=== PATIENT | female | born 1950 | race Hispanic/Latino ===

== ENCOUNTER 2021-05-20 11:54 | Emergency (ER) | payer OTHER ==
[2021-05-20 13:46] LABS: Absolute Lymphocytes (CBC) 0.7 K/uL (0.7-4.9); Basophils % 0.4 % (0-1.3); Hematocrit 41.7 % (36.0-45.0); MPV 9.4 fL (7.6-11.3); RBC Red Blood Cell Count 4.82 M/uL (3.86-4.86)
[2021-05-20 13:47] LABS: Protime INR 1.08
[2021-05-20 14:01] LABS: Albumin 3.1 g/dL (3.4-5.0); Bilirubin Direct 0.2 mg/dL (0-0.2); Bilirubin Total 0.4 mg/dL (0.2-1.0); Potassium 4.2 mmol/L (3.5-5.1); Protein, Total 7.4 g/dL (6.4-8.2); Troponin (Emerg Dept Use Only) 0.02 ng/mL (0.0-0.045)
[2021-05-20] MEDS ORDERED: NA CHLORIDE 0.9% 1,000 ML ONE (14:17)
[2021-05-20] MEDS ORDERED: FAMOTIDINE 20 MG/2 ML VIAL IV ONE (14:17)
--- NOTE | 2021-05-20 14:32 | RAD REPORT ---
EXAM DESCRIPTION: RAD - Chest Single View - 05/20/2021 1:55 pm CLINICAL HISTORY: COUGH COMPARISON: Chest Pa And Lat (2 Views) dated 12/19/2016; Chest Single View dated 09/02/2016; Chest Sin gle View dated 04/02/2016; ABDOMEN 1 VIEW KUB dated 05/06/2015 FINDINGS: Increased opacification at the lateral aspect of the left lung base. Nonspecific linear op acities in the right mid lung. The heart size is within normal limits.No acute osseous abnormality. N o significant pleural effusions or pneumothorax. IMPRESSION: Opacities laterally in the left lung base and right mid lung could reflect pneumonia in the appropriate clinical setting.
[2021-05-20 15:16] LABS: Ferritin 257.1 ng/mL (8-388)
[2021-05-20] MEDS ORDERED: ZINC SULFATE 220 MG CAP ONE (15:28)
[2021-05-20] MEDS ORDERED: NA CHLORIDE 0.9% 500 ML ONE (15:29)
[2021-05-20] MEDS ORDERED: ASPIRIN 81 MG CHEWABLE TABLET ONE (15:29)
[2021-05-20] MEDS ORDERED: THIAMINE HCL 100 MG TABLET ONE (15:29)
[2021-05-20] MEDS ORDERED: ASCORBIC ACID 500 MG TABLET ONE (15:29)
[2021-05-20] MEDS ORDERED: VITAMIN D 1000 UNIT TAB ONE (15:29)
[2021-05-20] MEDS ORDERED: CEFTRIAXONE/SWI 1gm 1 GM/10 ML SYR ONE (15:30)
--- NOTE | 2021-05-20 15:52 | EDPHYS ---
Physician Documentation [facility] Name: Odell Felix Age: 70 yrs Sex: Female : 1950 Arrival Date: 05/20/2021 Time: 11:58 Bed 14 Private MD: Arben Evans T ED Physician Dominguez Grant HPI: 05/20 12:39 This 70 yrs old Female presents to ER via Wheelchair with complaints of pilar Weakness. 12:39 The patient presents to the emergency department with weakness of the. pilar Historical: - Allergies: 12:17 Lortab; kg 12:17 Ultram; kg - Home Meds: 12:17 alprazolam 0.5 mg Oral tab 1 tab daily [Active]; amlodipine 5 mg tab 1 tab once daily kg [Active]; duloxetine 60 mg Oral cpDR 1 cap once daily [Active]; Iron CR 65mg Oral 1 tab daily [Active]; lisinopril 20 mg Oral tab 1 tab once daily [Active]; metformin 500 mg Oral tr24 1 tab twice daily [Active]; metoprolol tartrate 50 mg Oral tab 1 tab 2 times per day [Active]; pravastatin 10 mg Oral tab 1 tab once daily [Active]; [facility] Aspirin 81 mg Oral chew 1 tab once daily [Active]; - PMHx: 12:17 Anxiety; CVA; Diabetes - IDDM; Hypertension; Myocardial infarction; Depression; kg - PSHx: 12:17 Ligation of fallopian tube; kg - Immunization history:: Adult Immunizations not up to date, Client reports having NOT received the Covid vaccine. - Social history:: Smoking status: Patient denies any tobacco usage or history of. ROS: 12:39 Constitutional: Negative for fever, chills, and weight loss, Eyes: Negative for injury, pilar pain, redness, and discharge, ENT: Negative for injury, pain, and discharge, Neck: Negative for injury, pain, and swelling, Cardiovascular: Negative for chest pain, palpitations, and edema, Respiratory: Negative for shortness of breath, cough, wheezing, and pleuritic chest pain, Abdomen/GI: Negative for abdominal pain, nausea, vomiting, diarrhea, and constipation, Back: Negative for injury and pain, : Negative for injury, bleeding, discharge, and swelling, MS/Extremity: Negative for injury and deformity, Skin: Negative for injury, rash, and discoloration, Psych: Negative for depression, anxiety, suicide ideation, homicidal ideation, and hallucinations, Allergy/Immunology: Negative for hives, rash, and allergies, Endocrine: Negative for neck swelling, polydipsia, polyuria, polyphagia, and marked weight changes, Hematologic/Lymphatic: Negative for swollen nodes, abnormal bleeding, and unusual bruising. 12:39 Neuro: Positive for weakness. Exam: 12:39 Constitutional: This is a well developed, well nourished patient who is awake, alert, pilar and in no acute distress. Head/Face: Normocephalic, atraumatic. Eyes: Pupils equal round and reactive to light, extra-ocular motions intact. Lids and lashes normal. Conjunctiva and sclera are non-icteric and not injected. Cornea within normal limits. Periorbital areas with no swelling, redness, or edema. ENT: Nares patent. No nasal discharge, no septal abnormalities noted. Tympanic membranes are normal and external auditory canals are clear. Oropharynx with no redness, swelling, or masses, exudates, or evidence of obstruction, uvula midline. Mucous membranes moist. Neck: Trachea midline, no thyromegaly or masses palpated, and no cervical lymphadenopathy. Supple, full range of motion without nuchal rigidity, or vertebral point tenderness. No Meningismus. Chest/axilla: Normal chest wall appearance and motion. Nontender with no deformity. No lesions are appreciated. Cardiovascular: Regular rate and rhythm with a normal S1 and S2. No gallops, murmurs, or rubs. Normal PMI, no JVD. No pulse deficits. Respiratory: Lungs have equal breath sounds bilaterally, clear to auscultation and percussion. No rales, rhonchi or wheezes noted. No increased work of breathing, no retractions or nasal flaring. Abdomen/GI: Soft, non-tender, with normal bowel sounds. No distension or tympany. No guarding or rebound. No evidence of tenderness throughout. Back: No spinal tenderness. No costovertebral tenderness. Full range of motion. Female : Normal external genitalia. Skin: Warm, dry with normal turgor. Normal color with no rashes, no lesions, and no evidence of cellulitis. MS/ Extremity: Pulses equal, no cyanosis. Neurovascular intact. Full, normal range of motion. Neuro: Awake and alert, GCS 15, oriented to person, place, time, and situation. Cranial nerves II-XII grossly intact. Motor strength 5/5 in all extremities. Sensory grossly intact. Cerebellar exam normal. Normal gait. Psych: Awake, alert, with orientation to person, place and time. Behavior, mood, and affect are within normal limits. 14:52 ECG was reviewed by the Attending Physician. [facility] Vital Signs: 12:15 BP 112 / 62; Pulse 99; Resp 17; Temp 98.4; Pulse Ox 96% on R/A; Weight 54.43 kg (R); kg Height 5 ft. 1 in. (154.94 cm) (R); Pain 0/10; 13:00 BP 131 / 75; Pulse 86; Resp 16; Pulse Ox 99% ; bp 14:00 BP 138 / 72; Pulse 88; Resp 16; Pulse Ox 99% ; bp 15:00 BP 152 / 77; Pulse 85; Resp 16; Pulse Ox 99% ; bp 16:36 BP 185 / 81; Pulse 70; Resp 16; Pulse Ox 100% ; bp 17:30 BP 171 / 87; Pulse 74; Resp 16; Pulse Ox 100% ; bp 18:30 BP 187 / 77; Pulse 73; Resp 17; Pulse Ox 100% ; bp 12:15 Body Mass Index 22.67 (54.43 kg, 154.94 cm) kg MDM: 12:24 Patient medically screened. [facility] 12:42 Differential Diagnosis sepsis. Data reviewed: vital signs, nurses notes, lab test [facility] result(s), EKG, radiologic studies, plain films. Data interpreted: property assessment monitor: rate is 99 beats/min, rhythm is regular, Pulse oximetry: on room air is 96 %. Test interpretation: by ED physician or midlevel provider: ECG, plain radiologic studies. Counseling: I had a detailed discussion with the patient and/or guardian regarding: the historical points, exam findings, and any diagnostic results supporting the discharge/admit diagnosis, lab results, radiology results. 05/20 12:20 Order name: COVID-19 : Document "Date of Symptom Onset" if Symptomatic. kg 05/20 12:20 Order name: Flu kg 05/20 12:20 Order name: Influenza Screen (A ; Complete Time: 13:32 EDMA 05/20 12:38 Order name: Basic Metabolic Panel [facility] 05/20 12:38 Order name: CBC with Diff [facility] 05/20 12:38 Order name: LFT's [facility] 05/20 12:38 Order name: Magnesium [facility] 05/20 12:38 Order name: NT PRO-BNP [facility] 05/20 12:38 Order name: PT-INR [facility] 05/20 12:38 Order name: Troponin (emerg Dept Use Only) [facility] 05/20 12:38 Order name: Urine Culture [facility] 05/20 12:38 Order name: Lipase; Complete Time: 14:19 [facility] 05/20 12:39 Order name: Basic Metabolic Panel; Complete Time: 14:19 EDMS 05/20 12:38 Order name: XRAY Chest (1 view); Complete Time: 14:40 [facility] 05/20 12:39 Order name: CBC with Automated Diff; Complete Time: 14:19 EDMA 05/20 12:39 Order name: Liver (Hepatic) Function; Complete Time: 14:19 EDMA 05/20 12:39 Order name: Magnesium; Complete Time: 14:19 EDMA 05/20 12:39 Order name: NT PRO-BNP; Complete Time: 14:19 EDMA 05/20 12:39 Order name: Protime (+INR); Complete Time: 14:19 EDMA 05/20 12:39 Order name: Troponin (Emerg Dept Use Only); Complete Time: 14:19 EDMA 05/20 14:18 Order name: SARS-COV-2 RT PCR; Complete Time: 14:19 EDMA 05/20 14:23 Order name: CRP [facility] 05/20 14:23 Order name: Ferritin [facility] 05/20 14:23 Order name: D-Dimer [facility] 05/20 14:24 Order name: C-Reactive Protein; Complete Time: 15:46 EDMS 05/20 14:24 Order name: Ferritin; Complete Time: 15:46 EDMS 05/20 14:24 Order name: D-Dimer; Complete Time: 15:46 EDMA 05/20 14:44 Order name: Blood Culture Adult (2) [facility] 05/20 16:34 Order name: Urine Dipstick-Ancillary [facility] 05/20 12:38 Order name: EKG; Complete Time: 12:39 [facility] 05/20 12:38 Order name: Cardiac monitoring; Complete Time: 12:50 [facility] 05/20 12:38 Order name: EKG - Nurse/Tech; Complete Time: 12:50 [facility] 05/20 12:38 Order name: IV Saline Lock; Complete Time: 15:53 [facility] 05/20 12:38 Order name: Labs collected and sent; Complete Time: 15:53 [facility] 05/20 12:38 Order name: O2 Per Protocol; Complete Time: 12:50 [facility] 05/20 12:38 Order name: O2 Sat Monitoring; Complete Time: 12:50 [facility] 05/20 12:38 Order name: Urine Dipstick-Ancillary (obtain specimen); Complete Time: 16:39 [facility] 05/20 14:51 Order name: [facility]. Order: vit d 4000 iu po x1; Complete Time: 15:12 [facility] 05/20 15:47 Order name: [facility]. Order: urine , cath; Complete Time: 16:38 [facility] EC:52 Rate is 88 beats/min. Rhythm is regular. QRS Gilbert is Normal. IA interval is shortened pilar at 110 msec. QRS interval is normal. QT interval is normal. No Q waves. T waves are Normal. No ST changes noted. Clinical impression: NSR w/ Non-specific ST/T Changes and No evidence of ischemia. Interpreted by me. Reviewed by me. Administered Medications: 12:50 Drug: NS 0.9% 500 ml Route: IV; Rate: bolus; Site: right forearm; bp 17:20 Follow up: IV Status: Completed infusion; IV Intake: 500ml bp 12:50 Drug: NS 0.9% 1000 ml Route: IV; Rate: 125 ml/hr; Site: right forearm; bp 17:20 Follow up: IV Status: Completed infusion; IV Intake: 1000ml bp 12:50 Drug: Pepcid (famotidine) 20 mg Route: IVP; Site: right forearm; bp 15:12 Follow up: Response: No adverse reaction bp 15:00 Drug: REGEN-COV Dose Pack 120 mg/mL-120 mg/mL (EUA) 120 per protocol Route: IV; Rate: bp per protocol; Site: right forearm; 17:20 Follow up: IV Status: Completed infusion; IV Intake: 250ml bp 15:15 Drug: Ascorbic Acid 1 tablet Route: PO; bp 17:19 Follow up: Response: No adverse reaction bp 15:30 Drug: Rocephin (cefTRIAXone) 1 grams Route: IV; Rate: per protocol; Site: right forearm;bp 17:18 Follow up: IV Status: Completed infusion; IV Intake: 50ml bp 15:30 Drug: Aspirin Chewable Tablet 324 mg Route: PO; bp 17:19 Follow up: Response: No adverse reaction bp 15:30 Drug: NS 0.9% 500 ml Route: IV; Rate: bolus; Site: right forearm; bp 18:24 Follow up: IV Status: Completed infusion; IV Intake: 500ml bp 15:36 Drug: Zinc Sulfate 220 mg Route: PO; bp 17:19 Follow up: Response: No adverse reaction bp 15:45 Drug: Ivermectin 12 mg Route: PO; bp 17:19 Follow up: Response: No adverse reaction bp 16:00 Drug: Zithromax (azithromycin) 500 mg Route: PO; bp 17:19 Follow up: Response: No adverse reaction bp 16:45 Drug: Eliquis (apixaban) 2.5 mg Route: PO; bp 18:25 Follow up: Response: No adverse reaction bp 17:30 Drug: Cipro (ciprofloxacin) 250 mg Route: PO; bp 18:25 Follow up: Response: No adverse reaction bp Disposition Summary: 05/20/21 15:52 Discharge Ordered Location: Home pilar Problem: new pilar Symptoms: have improved pilar Condition: Stable pilar Diagnosis - Coronavirus infection, unspecified - covid 19 pilar - Unspecified kidney failure - chronic pilar - Other malaise and fatigue pilar - Type 1 diabetes mellitus with hyperglycemia pilar - UTI/ Urinary tract infection, site not specified pilar Followup: pilar - With: Arben Evans MD - When: 2 - 3 days - Reason: Recheck today's complaints, Continuance of care, Re-evaluation by your physician Followup: pilar - With: Gerry Carter MD - When: 2 - 3 days - Reason: Recheck today's complaints, Re-evaluation by your physician Discharge Instructions: - Discharge Summary Sheet pilar - Type 1 Diabetes Mellitus, Diagnosis, Adult pilar - Hyperglycemia pilar - Upper Respiratory Infection, Adult, Qzfy-[id number] pilar - Urinary Tract Infection, Adult pilar - Urinary Tract Infection, Adult, Lova-fj-Mkpe pilar - Viral Respiratory Infection, Kder-Vs-Rtnp pilar - Chronic Kidney Disease, Adult, Gxdm-za-Ntnk pilar - COVID-19 pilar Forms: - Medication Reconciliation Form pilar - Thank You Letter pilar - Antibiotic Education pilar - Prescription Opioid Use pilar Prescriptions: - Eliquis 2.5 mg Oral tablet - take 1 tablet by ORAL route 2 times per day; 30 tablet; Refills: 0, Product pilar Selection Permitted - NAC - take 600 milligram by ORAL route once daily; 15 milligram; Refills: 0, Product pilar Selection Permitted - Vitamin C - take 500 milligram by ORAL route 3 times per day; 60 milligram; Refills: 0, [facility] Product Selection Permitted - albuterol sulfate 90 mcg/actuation Inhalation HFA aerosol inhaler - inhale 2 puff by INHALATION route 3-4 times daily; 1 Pump; Refills: 0, Product pilar Selection Permitted - vit D3-vit V-knonqdjso-nwev - take 1 tablet by ORAL route 2 times per day; 30 tablet; Refills: 0, Product pilar Selection Permitted - Pepcid 20 mg Oral Tablet - take 1 tablet by ORAL route every 12 hours for 15 days; 30 tablet; Refills: 0, [facility] Product Selection Permitted - Zithromax Z-Nilesh 250 mg Oral Tablet - take 1 tablet by ORAL route as directed for 5 days Day 1 - take two (2) tablets pilar one time. Day 2, 3, 4 , 5 take one (1) tablet once daily.; 6 tablet; Refills: 0, Product Selection Permitted - ivermectin 3 mg Oral tablet - take 4 tablet by ORAL route once daily; 16 tablet; Refills: 0, Product pilar Selection Permitted - Cipro 250 mg Oral Tablet - take 1 tablet by ORAL route every 12 hours; 14 tablet; Refills: 0, Product pilar Selection Permitted Signatures: Dispatcher [employer] EDDominguez Hannon MD MD cha Peltier, Brian, RN RN bp Graham, Kristen, RN RN kg Corrections: (The following items were deleted from the chart) 12:54 12:20 CORONAVIRUS ordered. [facility] JUMANA
--- NOTE | 2021-05-20 15:52 | ER ---
Nurse's Notes [facility] Name: Odell Felix Age: 70 yrs Sex: Female : 1950 Arrival Date: 05/20/2021 Time: 11:58 Bed 14 Private MD: Arben Evans T Diagnosis: Coronavirus infection, unspecified-covid 19;Unspecified kidney failure-chronic;Other malaise and fatigue;Type 1 diabetes mellitus with hyperglycemia;UTI/ Urinary tract infection, site not specified Presentation: 05/20 12:15 Chief complaint: Patient states: Fever, weakness, fatigue x 1 wk. Coronavirus screen: kg Client denies travel out of the [place] in the last 14 days. At this time, unable to obtain information related to travel outside the [place] Client presents with at least one sign or symptom that may indicate coronavirus-19. Standard/surgical mask placed on the client. Provider contacted for isolation considerations. Ebola Screen: Patient negative for fever greater than or equal to 101.5 degrees Fahrenheit, and additional compatible Ebola Virus Disease symptoms Patient denies exposure to infectious person. Patient denies travel to an Ebola-affected area in the 21 days before illness onset. Onset of symptoms was May 14, 2021. 12:15 Method Of Arrival: Wheelchair kg 13:46 Acuity: OSIEL 3 iw 14:00 Initial Sepsis Screen: Does the patient meet any 2 criteria? No. Patient's initial bp sepsis screen is negative. Does the patient have a suspected source of infection? No. Patient's initial sepsis screen is negative. Risk Assessment: Do you want to hurt yourself or someone else? Patient reports no desire to harm self or others. Triage Assessment: 12:28 General: Appears distressed, uncomfortable, Behavior is cooperative, appropriate for bp age, anxious. Pain: Denies pain. EENT: No deficits noted. Neuro: Reports weakness GENERALLY. Cardiovascular: Rhythm is sinus rhythm. Respiratory: No deficits noted. GI: No signs and/or symptoms were reported involving the gastrointestinal system. : No signs and/or symptoms were reported regarding the genitourinary system. Derm: No deficits noted. Musculoskeletal: No deficits noted. Historical: - Allergies: 12:17 Lortab; kg 12:17 Ultram; kg - Home Meds: 12:17 alprazolam 0.5 mg Oral tab 1 tab daily [Active]; amlodipine 5 mg tab 1 tab once daily kg [Active]; duloxetine 60 mg Oral cpDR 1 cap once daily [Active]; Iron CR 65mg Oral 1 tab daily [Active]; lisinopril 20 mg Oral tab 1 tab once daily [Active]; metformin 500 mg Oral tr24 1 tab twice daily [Active]; metoprolol tartrate 50 mg Oral tab 1 tab 2 times per day [Active]; pravastatin 10 mg Oral tab 1 tab once daily [Active]; [facility] Aspirin 81 mg Oral chew 1 tab once daily [Active]; - PMHx: 12:17 Anxiety; CVA; Diabetes - IDDM; Hypertension; Myocardial infarction; Depression; kg - PSHx: 12:17 Ligation of fallopian tube; kg - Immunization history:: Adult Immunizations not up to date, Client reports having NOT received the Covid vaccine. - Social history:: Smoking status: Patient denies any tobacco usage or history of. Screenin:30 Abuse screen: Denies threats or abuse. Denies injuries from another. Nutritional bp screening: No deficits noted. Tuberculosis screening: No symptoms or risk factors identified. Fall Risk None identified. Assessment: 12:30 General: SEE TRIAGE NOTE. bp 14:00 Reassessment: No changes from previously documented assessment. Patient and/or family bp updated on plan of care and expected duration. Pain level reassessed. Patient is alert, oriented x 3, equal unlabored respirations, skin warm/dry/pink. 15:57 Reassessment: No changes from previously documented assessment. Patient and/or family bp updated on plan of care and expected duration. Pain level reassessed. Patient is alert, oriented x 3, equal unlabored respirations, skin warm/dry/pink. D/C ON HOLD FOR ORDERED ABX. 17:30 Reassessment: No changes from previously documented assessment. Patient and/or family bp updated on plan of care and expected duration. Pain level reassessed. Patient is alert, oriented x 3, equal unlabored respirations, skin warm/dry/pink. Patient states feeling better. 18:48 Reassessment: PT D/C HOME VAI W/C WITH FAMILY, DX WITH COVID+ AND UTI. bp Vital Signs: 12:15 BP 112 / 62; Pulse 99; Resp 17; Temp 98.4; Pulse Ox 96% on R/A; Weight 54.43 kg (R); kg Height 5 ft. 1 in. (154.94 cm) (R); Pain 0/10; 13:00 BP 131 / 75; Pulse 86; Resp 16; Pulse Ox 99% ; bp 14:00 BP 138 / 72; Pulse 88; Resp 16; Pulse Ox 99% ; bp 15:00 BP 152 / 77; Pulse 85; Resp 16; Pulse Ox 99% ; bp 16:36 BP 185 / 81; Pulse 70; Resp 16; Pulse Ox 100% ; bp 17:30 BP 171 / 87; Pulse 74; Resp 16; Pulse Ox 100% ; bp 18:30 BP 187 / 77; Pulse 73; Resp 17; Pulse Ox 100% ; bp 12:15 Body Mass Index 22.67 (54.43 kg, 154.94 cm) kg ED Course: 11:58 Patient arrived in ED. as 11:58 Arben Evans MD is Private Physician. as 12:00 Dominguez Grant MD is Attending Physician. pilar 12:17 Arm band placed on right wrist. kg 12:28 Denver Cifuentes, DRE is Primary Nurse. bp 12:30 Patient has correct armband on for positive identification. Bed in low position. Call bp light in reach. Side rails up X2. 13:10 Inserted saline lock: 22 gauge in right forearm, using aseptic technique. upper arm, bp using aseptic technique. 13:46 Triage completed. iw 13:55 XRAY Chest (1 view) In Process Unspecified. EDMS 15:49 Arben Evans MD is Referral Physician. pilar 15:50 Gerry Carter MD is Referral Physician. pilar 15:53 D-Dimer Sent. bp 15:53 Ferritin Sent. bp 15:53 CRP Sent. bp 17:30 No provider procedures requiring assistance completed. IV discontinued, intact, bp bleeding controlled, No redness/swelling at site. Pressure dressing applied. Administered Medications: 12:50 Drug: NS 0.9% 500 ml Route: IV; Rate: bolus; Site: right forearm; bp 17:20 Follow up: IV Status: Completed infusion; IV Intake: 500ml bp 12:50 Drug: NS 0.9% 1000 ml Route: IV; Rate: 125 ml/hr; Site: right forearm; bp 17:20 Follow up: IV Status: Completed infusion; IV Intake: 1000ml bp 12:50 Drug: Pepcid (famotidine) 20 mg Route: IVP; Site: right forearm; bp 15:12 Follow up: Response: No adverse reaction bp 15:00 Drug: REGEN-COV Dose Pack 120 mg/mL-120 mg/mL (EUA) 120 per protocol Route: IV; Rate: bp per protocol; Site: right forearm; 17:20 Follow up: IV Status: Completed infusion; IV Intake: 250ml bp 15:15 Drug: Ascorbic Acid 1 tablet Route: PO; bp 17:19 Follow up: Response: No adverse reaction bp 15:30 Drug: Rocephin (cefTRIAXone) 1 grams Route: IV; Rate: per protocol; Site: right forearm;bp 17:18 Follow up: IV Status: Completed infusion; IV Intake: 50ml bp 15:30 Drug: Aspirin Chewable Tablet 324 mg Route: PO; bp 17:19 Follow up: Response: No adverse reaction bp 15:30 Drug: NS 0.9% 500 ml Route: IV; Rate: bolus; Site: right forearm; bp 18:24 Follow up: IV Status: Completed infusion; IV Intake: 500ml bp 15:36 Drug: Zinc Sulfate 220 mg Route: PO; bp 17:19 Follow up: Response: No adverse reaction bp 15:45 Drug: Ivermectin 12 mg Route: PO; bp 17:19 Follow up: Response: No adverse reaction bp 16:00 Drug: Zithromax (azithromycin) 500 mg Route: PO; bp 17:19 Follow up: Response: No adverse reaction bp 16:45 Drug: Eliquis (apixaban) 2.5 mg Route: PO; bp 18:25 Follow up: Response: No adverse reaction bp 17:30 Drug: Cipro (ciprofloxacin) 250 mg Route: PO; bp 18:25 Follow up: Response: No adverse reaction bp Intake: 17:18 IV: 50ml; Total: 50ml. bp 17:20 IV: 250ml; Total: 300ml. bp 17:20 IV: 500ml; Total: 800ml. bp 17:20 IV: 1000ml; Total: 1800ml. bp 18:24 IV: 500ml; Total: 2300ml. bp Outcome: 15:52 Discharge ordered by . pilar 17:30 Discharged to home via wheelchair, with family. bp 17:30 Condition: stable 17:30 Discharge instructions given to patient, family, Instructed on discharge instructions, follow up and referral plans. medication usage, Demonstrated understanding of instructions, follow-up care, medications, Prescriptions given X 10 18:52 Patient left the ED. bp Signatures: Dispatcher [employer] Dominguez Read MD MD cha Martinez, Amelia as Kamila Esquivel RN RN iw Denver Cifuentes RN RN bp Hortencia Reynoso RN RN kg Corrections: (The following items were deleted from the chart) 15:40 15:15 Ivermectin 12 mg PO bp bp 16:36 15:57 Reassessment: No changes from previously documented assessment. Patient and/or bp family updated on plan of care and expected duration. Pain level reassessed. Patient is alert, oriented x 3, equal unlabored respirations, skin warm/dry/pink. bp
[2021-05-20] MEDS ORDERED: [UNRECOGNIZED DRUG - OTHER] IV ONE (16:00)
[2021-05-20] MEDS ORDERED: AZITHROMYCIN IV 500 MG in NA CHLORIDE 0.9% 250 ML IVPB ONE (16:00)
[2021-05-20] MEDS ORDERED: IVERMECTIN 3 MG TABLET PO ONE (16:00)
[2021-05-20 16:34] LABS: Urine Blood 2+ (Negative); Urine Glucose Negative (Negative); Urine Protein 2+ (Negative); Urine Specific Gravity 1.025 (1.005-1.030)
[2021-05-20] MEDS ORDERED: APIXABAN 5 MG TABLET ONE (17:15)
[2021-05-20] MEDS ORDERED: AZITHROMYCIN 250 MG TAB ONE (18:12)
[2021-05-20] MEDS ORDERED: CIPROFLOXACIN HCL 500 MG TAB ONE (18:12)
[2021-05-20 18:58] VITALS: TEMP 98.4
[2021-05-20 19:06] VITALS: O2SAT 100
[2021-05-20 19:09] VITALS: BP 187/77
--- NOTE | 2021-05-21 08:02 | EKG ---
Test Date: 2021-05-20 Test Time: 12:50:53 [employer]: BRYANT MEASUREMENT RESULTS: Intervals: Rate: 88 IL: 110 QRSD: 70 QT: 394 QTc: 476 Lorida: P: -8 IL: 110 QRS: 5 T: -8 INTERPRETIVE STATEMENTS: Sinus rhythm with short IL Otherwise normal ECG Compared to ECG 09/02/2016 03:15:16 Short IL interval now present Sinus bradycardia no longer present Myocardial infarct finding no longer present Electronically Signed On 05-21-21 08:00:23 CDT by Carlos Curran
== END 2021-05-20 18:52 | disposition home or self-care (01) ==
LOC: ER 11:54
DX: U07.1 COVID-19 (principal); N39.0 Urinary tract infection, site not specified; I12.9 Hypertensive chronic kidney disease with stage 1 through stage 4 chronic kidney disease, or unspecified chronic kidney disease; N18.9 Chronic kidney disease, unspecified; E10.65 Type 1 diabetes mellitus with hyperglycemia; R53.83 Other fatigue; R53.81 Other malaise; F41.8 Other specified anxiety disorders; Z88.8 Allergy status to other drugs, medicaments and biological substances
CPT/HCPCS: 96365; 96361; 93005; 87040 ×2; 87088; 85025; 87086; 80048; 36415; 83735; 85610; 85379; 80076; 81003; 84484; 82728; 83690; 83880; 86140; 87804 ×2; 71045; 96375; 99284; U0003; J0696; J7050; J7040; J7030; J0456